=== PATIENT | female | born 1950 | race Caucasian/White ===

== ENCOUNTER → 2024-09-01 | Outpatient (CLI) | payer MEDICARE, BC, SELFPAY ==
--- NOTE | 2024-09-01 14:46 | XR_ITS ---
Examination: PA lateral chest 2 views TECHNIQUE: Upright PA lateral chest 2 views Date and time: September 01, 2024 1537 hours Comparison 01/04/2024 INDICATIONS: Coughing shortness of breath beginning one week ago. FINDINGS: Moderate enlargement cardiac contour Small granuloma left upper lobe Minimal opacity right base No pulmonary edema Moderate osteopenia IMPRESSION: Suspicious for mild pneumonia right base
== END | disposition home or self-care (01) ==
LOC: CDIM 14:40
PROVIDERS: PCP Family Medicine; Referring Provider Nurse Practitioner Family; Visit Provider Nurse Practitioner Family
DX: R06.02 Shortness of breath (principal); R05.9 Cough, unspecified
CPT/HCPCS: 71046

== ENCOUNTER 2024-09-10 11:55 | Emergency (ER) | payer MEDICARE, BC, SELFPAY ==
[2024-09-10 11:56] VITALS: BMI 22.8
--- NOTE | 2024-09-10 12:00 | EKG_ITS ---
[facility] Test Date: 2024-09-10 Pat Name: KALINA RUEDA Department: Room: - Gender: Female Shipping Clerk: : 1950 Requested By: ED Temporary Provider Order Number: [id number] Reading MD: ED Temporary Provider Measurements Intervals Bath Rate: 80 P: 42 CO: 248 QRS: 57 QRSD: 114 T: 35 QT: 410 QTc: 473 Interpretive Statements SINUS RHYTHM WITH FIRST DEGREE AV BLOCK MODERATE INTRAVENTRICULAR CONDUCTION DELAY [105+ ms QRS DURATION, 80+ ms Q/S IN V1/V2, NO Q AND 60+ ms R IN I/aVL/V5/V6] NONSPECIFIC T-WAVE ABNORMALITY Compared to ECG 01/04/2024 18:52:42 First degree AV block now present Intraventricular conduction delay now present Ventricular premature complex(es) no longer present T-wave abnormality still present /store/S0/[id number]/ecg/[id number].pdf
[2024-09-10 12:12] VITALS: BP 109/74; PULSE 81; RESP 18; TEMP 36.8; O2SAT 98; BMI 22.8
--- NOTE | 2024-09-10 12:15 | EDRME_ITS ---
Rapid Medical Screening Exam [facility] Arrival date/time: 09/10/24 11:55 74-year-old female with a history of congestive heart failure, SVT presents to the emergency room with a chief complaint of lightheadedness and weakness. Patient states she is also had an increased weight which is why her primary care provider decided to send her to the emergency room due to her hypotension and history of congestive heart failure. Patient is currently being treated for pneumonia I have greeted and performed a focused initial assessment of this patient. A comprehensive ED assessment and evaluation of the patient, analysis of all test results, and completion of the medical decision making process will be conducted by additional ED providers. Chief Complaint: General Adult/Misc Complain Time Seen by Provider: 09/10/24 12:09 Vital signs: Vital Signs Temperature 98.3 F 09/10/24 12:12 Pulse Rate 81 09/10/24 12:12 Respiratory Rate 18 09/10/24 12:12 Blood Pressure 109/74 09/10/24 12:12 Pulse Oximetry (%) 98 09/10/24 12:12 Oxygen Delivery Method Room Air 09/10/24 12:12 Vital signs reviewed by provider: Yes
--- NOTE | 2024-09-10 12:15 | XR_ITS ---
Examination: PA lateral chest 2 views TECHNIQUE: Upright PA lateral chest 2 views Date and time: September 10, 2024 12:27 PM Comparison September 01, 2024 INDICATIONS: Chest pain lightheaded today FINDINGS: Mild to moderate enlargement cardiac contour No lobar pneumonia Stable small granuloma left upper lobe compared with December 07, 2020 IMPRESSION: Mild to moderate enlargement left ventricle No pneumonia or pulmonary edema
[2024-09-10 12:48] LABS: Basophils % (Auto) 0 % (0-2.5); Eosinophils # (Auto) 0.1 Thou/mm3 (0.0-0.5); Eosinophils % (Auto) 1 % (0-10); Hematocrit 32.7 % (36.0-46.0); Hemoglobin 11.3 g/dL (12.0-16.0); Immature Granulocytes % (Auto) 1 % (0-0); Immature Granulocytes Auto 0.05 Thou/mm3 (0.00-0.00); Lymphocytes # (Auto) 1.7 Thou/mm3 (1.0-4.8); Lymphocytes % (Auto) 22 % (10-50); Mean Corpuscular HGB Conc 34.6 g/dl (31.0-37.0); Mean Corpuscular Hemoglobin 34.5 pg (25.0-35.0); Mean Corpuscular Volume 100 fL (80-100); Monocytes # (Auto) 0.8 Thou/mm3 (0.0-0.8); Monocytes % (Auto) 10 % (0-12); Neutrophils # (Auto) 5.1 Thou/mm3 (1.8-7.7); Neutrophils % (Auto) 66 % (37-80); Nucleated Red Blood Cell % 0 /100 WBC (0); Platelet Count 184 Thou/mm3 (140-440); RDW Standard Deviation 53.2 fL (36.4-46.3); Red Blood Count 3.28 Miln/mm3 (4.00-5.20); White Blood Count 7.7 Thou/mm3 (3.6-11.0)
[2024-09-10 13:06] LABS: Bilirubin,Urine Negative (Negative); Blood,Urine 2+ (Negative); Clarity,Urine Clear (Clear/Hazy); Collection Type, Urine Clean Catch; Color,Urine Colorless (Lt Yel-Yel); Glucose, Urine Negative (Negative); Ketones,Urine Negative (Negative); Leukocyte Esterase,Urine Negative (Negative); Nitrite,Urine Negative (Negative); Protein,Urine Negative (Neg - Trace); RBC,Urine 8 /hpf (0-3); Specific Gravity,Urine 1.009 (1.001-1.035); Squamous Epithelial Cell,Urine < 1 /hpf (0-5); Urobilinogen,Urine Negative mg/dL (0.0-1.0); WBC,Urine 1 /hpf (0-5)
[2024-09-10 13:07] LABS: Alanine Aminotransferase 58 U/L (10-49); Albumin, Serum 4.5 gm/dL (3.4-4.8); Albumin/Globulin Ratio 2.3 (1.2-2.2); Alkaline Phosphatase 113 U/L (46-116); Anion Gap 8 (7-16); Aspartate Amino Transferase 51 U/L (0-34); B-Type Natriuretic Peptide 92 pg/mL (0-100); BUN/Creatinine Ratio 10 Ratio (12-20); Bilirubin,Total 0.4 mg/dL (0.3-1.2); Blood Urea Nitrogen 10 mg/dL (9-23); Calcium 8.8 mg/dL (8.3-10.6); Calcium (Corrected) 8.8 mg/dL (8.5-10.1); Carbon Dioxide 29.7 mMol/L (20.0-31.0); Chloride 100 mMol/L (98-107); Estimated Creatinine Clearance 42.6 mL/min (>60); Glucose 99 mg/dL (74-106); Osmolality,Calculated 274 (275-295); Potassium 4.1 mMol/L (3.4-5.1); Sodium 138 mMol/L (136-145); Total Protein 6.5 gm/dL (5.7-8.2); Troponin I < 0.020 ng/mL (0.0-0.045); eGFR 59 See Note
[2024-09-10 13:32] LABS: INR 1.2 (0.9-1.3); Partial Thromboplastin Time 40.1 Seconds (22.0-36.0)
[2024-09-10 14:38] VITALS: BP 118/67; PULSE 85; RESP 18; TEMP 36.9; O2SAT 95
--- NOTE | 2024-09-10 14:55 | EDNOTE_ITS ---
<Statement entered by Lucille Reese MD - 09/11/24 06:24> As co-signing physician, I was present and available for consult prn. I concur with the plan and care as documented by the midlevel provider. ED General RME/HPI General Chief complaint: General Adult/Misc Complain Stated complaint: DIAG WITH PNEUMONIA, SENT BY PMD, HX CHF, LOW BP Time Seen by Provider: 09/10/24 12:09 Arrival date/time: 09/10/24 11:55 RME / HPI RME / HPI narrative: 74-year-old female patient with significant history of congestive heart failure SVT, came in for evaluation regarding shortness of breath and wheezing earlier today. Patient woke up with expiratory wheezing severity mild. Went to PCP and PCP is concerned due to soft blood pressure and history of congestive heart failure. Patient finished antibiotic for pneumonia. Last week denies any other complaints patient lives alone Related Data Home Medications ?Medication ?Instructions ?Recorded ?Confirmed phenytoin sodium extended 100 mg 350 mg PO DAILY 12/0809/20/23 capsule rosuvastatin 5 mg tablet 5 mg PO QDAY 12/08/20 sacubitril 24 mg-valsartan 26 mg 1 tab PO BID 09/20/23 09/20/23 tablet (Entresto) Previous Rx's ?Medication ?Instructions ?Recorded carvedilol 3.125 mg tablet (Coreg) 3.125 mg PO BID #60 tabs 12/09/20 amiodarone 200 mg tablet 200 mg PO BID #60 tabs 09/20 apixaban 5 mg tablet (Eliquis) 5 mg PO BID #60 tabs albuterol sulfate 90 mcg/actuation 2 inh inhalation Q6 H PRN shortness 09/10/24 aerosol inhaler of breath or wheezing #8.5 g ed prednisone 50 mg tablet 50 mg PO QDAY #7 tabs Allergies Allergy/AdvReac Type Severity Reaction Status Date / Time tizanidine Allergy Severe TONGUE Verified 09/10/24 11:59 SWELLING Review of Systems Review of Systems Narrative Review of Systems: Review of system reviewed and within normal limits except mentioned in HPI ED Exam Narrative Physical exam: VITAL SIGNS: Reviewed. GENERAL APPEARANCE: Alert and interactive, follows commands, no acute distress, HEAD AND FACE: Non-traumatic. ENT: PERRL, pink conjunctivitis, eyelid no trauma, Mucous membrane moist. NECK: Supple, nontender, no nuchal rigidity. CHEST: No tenderness, no crepitus, no paradoxical movement, no retractions. LUNGS: Clear, well ventilated, symmetric, no rales, + occasional wheezing, no ronchi, no stridor, good breath sounds bilaterally. HEART: Regular rate, regular rhythm, no murmur, no gallops. ABDOMEN: Soft, positive bowel sounds, nondistended, no guarding, nontender, no rebound, no masses, RECTAL: Deferred. GENITAL: Deferred. NEUROLOGICAL: Gross motor function intact sensory function intact, Appropriate for age. MUSCULOSKELETAL: low back nontender, full range of motion. EXTREMITIES: Nontender, full range of motion. +1 bilateral lower extremity edema SKIN: Color pink, dry, no rash, no lacerations, no abrasions, no contusions. LYMPHATICS: Deferred. Course Quality Measures none Orders Category Date Time Status EKG (ED ONLY) *Do not use* NOW Care 09/10/24 12:00 Completed EKG (ED Only) Stat Exams 09/10/24 12:00 Draft XR chest 2V Stat Exams 09/10/24 12:15 Completed B-Type Natriuretic Peptide Stat Lab 09/10/24 12:32 Completed CBC Stat Lab 09/10/24 12:32 Completed Comprehensive Metabolic Panel Stat Lab 09/10/24 12:32 Completed Partial Thromboplastin Time Stat Lab 09/10/24 12:32 Completed Prothrombin Time with INR Stat Lab 09/10/24 12:32 Completed Troponin I Stat Lab 09/10/24 12:32 Completed Urinalysis Stat Lab 09/10/24 12:44 Completed Vital Signs Vital signs: Vital Signs Temperature 98.3 F 09/10/24 12:12 Pulse Rate 81 09/10/24 12:12 Respiratory Rate 18 09/10/24 12:12 Blood Pressure 109/74 09/10/24 12:12 Pulse Oximetry (%) 98 09/10/24 12:12 Oxygen Delivery Method Room Air 09/10/24 12:12 Discharge Plan Plan Patient Disposition: HOME (Self Care) Discharge Disposition comment: Stable Prescriptions/Referrals Prescriptions/Med Rec: New albuterol sulfate 90 mcg/actuation HFA aerosol inhaler 2 inh inhalation Q6H PRN (Reason: shortness of breath or wheezing) Qty: 8.5 0RF prednisone 50 mg tablet 50 mg PO QDAY Qty: 7 0RF No Action phenytoin sodium extended 100 mg capsule 350 mg PO DAILY rosuvastatin 5 mg tablet 5 mg PO QDAY carvedilol [Coreg] 3.125 mg tablet 3.125 mg PO BID Qty: 60 0RF Rx Instructions: must administer with a meal/food Entresto 24-26 mg Tablet 1 tab PO BID amiodarone 200 mg tablet 200 mg PO BID Qty: 60 0RF Eliquis 5 mg tablet 5 mg PO BID Qty: 60 0RF Referrals: Franky Chilel MD [Primary Care Provider] - In 1 week Problem List Clinical Impression: Cough, Expiratory wheezing Patient/Caregiver Discharge Instructions Discharge Activity: activity as tolerated Education Materials: ED Bronchitis with Wheezing (Adult) Additional Instructions: Thank you for the opportunity for serving you today. You are stable for discharged . You are advised to: Follow-up with your PCP in 1 to 2 days Return to ED for worsening of symptoms Take medication as prescribed Print Language: Faroese Stand Alone Forms: [employer] Award Info., Patient Portal Info Letter PA/OSMIN Supervising Physician PA/OSMIN Supervising Physician: MD López [facility] Narrative MDM hospital course: 74-year-old female patient with significant history of congestive heart failure SVT, came in for evaluation regarding shortness of breath and wheezing earlier today. Patient woke up with expiratory wheezing severity mild. Went to PCP and PCP is concerned due to soft blood pressure and history of congestive heart failure. Patient finished antibiotic for pneumonia. Last week denies any other complaints patient lives alone I personally reviewed and interpreted the x-ray of this patient. There is no acute abnormalities found, no infiltrates no pneumothorax no hemothorax normal chest x-ray. Review of other structures was without significant abnormal findings also. I additionally reviewed the radiologist report and agree with the interpretation. EKG's interpreted by me showed normal sinus rhythm, ventricular rate of 80 bpm, no ST segment elevation depression noted. Patient's workup today all came back unremarkable. Patient's blood pressure was noted to be 118/67 prior to discharge satting 95% prior to discharge. Patient appears nontoxic and hemodynamically stable. Patient discharged home and instructed to follow-up with primary care provider in 24 to 48 hours. Instructed to return to the emergency department immediately if worsening of symptoms Labs/Rad/Tests considered, not Ordered Describe details: See results in MDM Lab Interpretation Lab(s) interpretation(s): None Imaging Provider imaging interpretation(s): None Radiology reports / interpretation(s): See results [facility] Medication Administration(s) None Diagnosis Differential diagnosis: Wheezing, pneumonia, CHF exacerbation Most likely dx, and/or detailed dx discussion: Wheezing, cough
== END 2024-09-10 15:05 | disposition home or self-care (01) ==
PROVIDERS: Nurse Practitioner Family; Emergency Provider Emergency Medicine; PCP Family Medicine
DX: R05.9 Cough, unspecified (principal); R06.2 Wheezing; I50.9 Heart failure, unspecified
CPT/HCPCS: 36415; 71046; 80053; 81001; 83880; 84484; 85025; 85610; 85730; 93005; 99283

== ENCOUNTER → 2024-10-05 | Outpatient (CLI) | payer MEDICARE, BC, SELFPAY ==
[2024-10-05 16:25] LABS: Basophils % (Auto) 0 % (0-2.5); Eosinophils # (Auto) 0.1 Thou/mm3 (0.0-0.5); Eosinophils % (Auto) 1 % (0-10); Hematocrit 34.7 % (36.0-46.0); Hemoglobin 11.7 g/dL (12.0-16.0); Immature Granulocytes % (Auto) 0 % (0-0); Immature Granulocytes Auto 0.02 Thou/mm3 (0.00-0.00); Lymphocytes # (Auto) 1.8 Thou/mm3 (1.0-4.8); Lymphocytes % (Auto) 30 % (10-50); Mean Corpuscular HGB Conc 33.7 g/dl (31.0-37.0); Mean Corpuscular Hemoglobin 35.1 pg (25.0-35.0); Mean Corpuscular Volume 104 fL (80-100); Monocytes # (Auto) 0.4 Thou/mm3 (0.0-0.8); Monocytes % (Auto) 7 % (0-12); Neutrophils # (Auto) 3.7 Thou/mm3 (1.8-7.7); Neutrophils % (Auto) 61 % (37-80); Nucleated Red Blood Cell % 0 /100 WBC (0); Platelet Count 264 Thou/mm3 (140-440); RDW Standard Deviation 55.4 fL (36.4-46.3); Red Blood Count 3.33 Miln/mm3 (4.00-5.20)
[2024-10-05 16:45] LABS: Alanine Aminotransferase 38 U/L (10-49); Albumin, Serum 4.4 gm/dL (3.4-4.8); Alkaline Phosphatase 119 U/L (46-116); Anion Gap 8 (7-16); Aspartate Amino Transferase 36 U/L (0-34); BUN/Creatinine Ratio 8 Ratio (12-20); Bilirubin,Total 0.3 mg/dL (0.3-1.2); Blood Urea Nitrogen 8 mg/dL (9-23); Calcium 9.1 mg/dL (8.3-10.6); Calcium (Corrected) 9.1 mg/dL (8.5-10.1); Carbon Dioxide 31.4 mMol/L (20.0-31.0); Chloride 100 mMol/L (98-107); Globulin 2.2 gm/dL (2.3-3.5); Glucose 142 mg/dL (74-106); Osmolality,Calculated 277 (275-295); Potassium 4.3 mMol/L (3.4-5.1); Sodium 139 mMol/L (136-145); Thyroid Stimulating Hormone 138.73 uIU/mL (0.55-4.78); Total Protein 6.6 gm/dL (5.7-8.2); eGFR 59 See Note
[2024-10-05 16:48] LABS: T4 (Thyroxine) 0.1 mcg/dL (4.5-10.9)
== END | disposition home or self-care (01) ==
LOC: COPL 15:36
PROVIDERS: PCP Family Medicine; Referring Provider Family Medicine; Visit Provider Family Medicine
DX: J18.9 Pneumonia, unspecified organism (principal); G25.81 Restless legs syndrome; R79.9 Abnormal finding of blood chemistry, unspecified
CPT/HCPCS: 36415; 80053; 84436; 84443; 85025

== ENCOUNTER → 2024-10-29 | Outpatient (CLI) | payer MEDICARE, BC, SELFPAY ==
[2024-10-29 13:25] LABS: Free T4 (Free Thyroxine) 0.45 ng/dL (0.89-1.76); Thyroid Stimulating Hormone 85.96 uIU/mL (0.55-4.78)
[2024-10-29 13:31] LABS: Iron 99 mcg/dL (50-170); Vitamin B12 814 pg/mL (211-911)
[2024-11-04 06:32] LABS: T3,Total* 34 ng/dL (76-181); Thyroid Peroxidase Antibodies* <1 IU/mL (<9)
== END | disposition home or self-care (01) ==
LOC: COPL 12:16
PROVIDERS: PCP Family Medicine; Referring Provider Nurse Practitioner Family; Visit Provider Nurse Practitioner Family
DX: E03.9 Hypothyroidism, unspecified (principal); D64.9 Anemia, unspecified
CPT/HCPCS: 36415; 82607; 83540; 84439; 84443; 84480; 86376

== ENCOUNTER → 2024-11-10 | Outpatient (CLI) | payer MEDICARE, BC, SELFPAY ==
--- NOTE | 2024-11-10 12:08 | XR_ITS ---
Examination: Abdomen sonogram, complete Date and time of exam: November 10, 2024 1216 hours INDICATIONS: Upper abdominal pain beginning 4 weeks ago. Technique: Multiple real-time grayscale transabdominal sonographic images of the abdomen have been obtained. Findings: Normal gallbladder Normal common bile duct 0.7 cm Pancreatic head 1.9 cm Aorta not enlarged Liver 16.5 cm fatty infiltration Normal hepatopedal portal venous flow Patent IVC Right kidney 9.5 cm cortex 0.9 cm Left kidney 9.7 cm cortex 1.4 cm Mild renal parenchymal scar formation Spleen 9.1 cm IMPRESSION: Normal gallbladder No common bile duct Mild hepatomegaly fatty infiltration Small kidneys with bilateral renal cortical thinning
--- NOTE | 2024-11-10 12:09 | XR_ITS ---
Examination: Pelvic ultrasound, transabdominal, complete Technique: Transabdominal ultrasound of the pelvis performed using grayscale imaging Date and time of exam: November 10, 2024 1227 hours INDICATIONS: Status post hysterectomy and nephrectomy 53 years ago, patient states pelvic swelling and lump this month FINDINGS: Absent uterus, absent ovaries No free fluid in the pelvis No pelvic mass IMPRESSION: No free fluid in the pelvis, no pelvic mass
== END | disposition home or self-care (01) ==
PROVIDERS: PCP Family Medicine; Referring Provider Family Medicine; Visit Provider Family Medicine
DX: R19.00 Intra-abdominal and pelvic swelling, mass and lump, unspecified site (principal); B02.8 Zoster with other complications
CPT/HCPCS: 76700; 76856

== ENCOUNTER → 2024-12-11 | Outpatient (CLI) | payer MEDICARE, BC, SELFPAY ==
[2024-12-21 08:53] LABS: Fecal Globin Result NOT DETECTED (NOT DETECTED)
== END | disposition home or self-care (01) ==
LOC: CDIM 15:54 → SLDO 15:58
PROVIDERS: PCP Family Medicine; Referring Provider Nurse Practitioner Family; Visit Provider Nurse Practitioner Family
DX: R19.00 Intra-abdominal and pelvic swelling, mass and lump, unspecified site (principal); D64.9 Anemia, unspecified
CPT/HCPCS: 82274; G0328

== ENCOUNTER → 2024-12-18 | Outpatient (CLI) | payer MEDICARE, BC, SELFPAY ==
[2024-12-18 10:49] LABS: Free T4 (Free Thyroxine) 0.82 ng/dL (0.89-1.76); Thyroid Stimulating Hormone 29.81 uIU/mL (0.55-4.78)
== END | disposition home or self-care (01) ==
PROVIDERS: PCP Family Medicine; Referring Provider Nurse Practitioner Family; Visit Provider Nurse Practitioner Family
DX: E03.9 Hypothyroidism, unspecified (principal)
CPT/HCPCS: 36415; 84439; 84443

== ENCOUNTER → 2025-03-19 | Outpatient (CLI) | payer MEDICARE, BC, SELFPAY ==
[2025-03-19 16:48] LABS: Alanine Aminotransferase 39 U/L (10-49); Albumin, Serum 4.8 gm/dL (3.4-4.8); Albumin/Globulin Ratio 2.0 (1.2-2.2); Alkaline Phosphatase 102 U/L (46-116); Anion Gap 9 (7-16); Aspartate Amino Transferase 31 U/L (0-34); BUN/Creatinine Ratio 11 Ratio (12-20); Bilirubin,Total 0.5 mg/dL (0.3-1.2); Blood Urea Nitrogen 9 mg/dL (9-23); Calcium 9.6 mg/dL (8.3-10.6); Calcium (Corrected) 9.6 mg/dL (8.5-10.1); Carbon Dioxide 29.1 mMol/L (20.0-31.0); Chloride 105 mMol/L (98-107); Creatinine (Component) 0.8 mg/dL (0.6-1.3); Globulin 2.4 gm/dL (2.3-3.5); Glucose 100 mg/dL (74-106); Osmolality,Calculated 283 (275-295); Potassium 4.1 mMol/L (3.4-5.1); Sodium 143 mMol/L (136-145); Thyroid Stimulating Hormone 2.03 uIU/mL (0.55-4.78); Total Protein 7.2 gm/dL (5.7-8.2); eGFR > 60 See Note
[2025-03-19 17:03] LABS: T4 (Thyroxine) 5.9 mcg/dL (4.5-10.9)
== END | disposition home or self-care (01) ==
LOC: COPL 14:38
PROVIDERS: PCP Family Medicine; Referring Provider Family Medicine; Visit Provider Family Medicine
DX: E03.9 Hypothyroidism, unspecified (principal); B02.8 Zoster with other complications; I48.0 Paroxysmal atrial fibrillation; G90.09 Other idiopathic peripheral autonomic neuropathy
CPT/HCPCS: 36415; 80053; 84436; 84443